=== PATIENT | female | born 1970 | race Caucasian/White ===

== ENCOUNTER 2019-05-08 08:37 | Outpatient (CLI) | payer OTHER ==
[~2019-05-08 08:37] MED LIST: PREDNISONE5 MG/DOSE- PO; TRAMADOL HCL50 MG PO
== END 2019-05-08 09:34 | disposition home or self-care (01) ==
LOC: LAB 08:37
DX: K80.10 Calculus of gallbladder with chronic cholecystitis without obstruction (principal); Z01.812 Encounter for preprocedural laboratory examination

== ENCOUNTER 2019-06-02 07:01 | Inpatient (IN) | payer OTHER ==
[~2019-06-02] VITALS: Ht 30.5 cm; Wt 5.0 kg
== END 2019-06-05 12:58 | disposition home or self-care (01) | DRG 419 ==
LOC: ER 07:01 → CIR.AMB 08:20 → ER 08:20 → SURH 08:20
PROVIDERS: ADMIT Specialist
PROC: BF10YZZ Fluoroscopy of Bile Ducts using Other Contrast (ICD-10-PCS; 2019-06-03)
PROC: 0FT44ZZ Resection of Gallbladder, Percutaneous Endoscopic Approach (ICD-10-PCS; principal; 2019-06-04 07:00)
DX: K80.45 Calculus of bile duct with chronic cholecystitis with obstruction (principal); F17.200 Nicotine dependence, unspecified, uncomplicated

== ENCOUNTER 2023-08-01 15:21 | Emergency (ER) | payer OTHER ==
[~2023-08-01] VITALS: Ht 154.9 cm; Wt 93.0 kg
== END 2023-08-01 19:11 | disposition home or self-care (01) ==
LOC: ER 15:22
DX: M25.562 Pain in left knee (principal)